=== PATIENT | male | born 1960 | race African-American/Black ===

== ENCOUNTER 2020-04-14 19:25 | Emergency (ER) | payer OTHER ==
[~2020-04-14] VITALS: Ht 167.6 cm; Wt 89.5 kg
[2020-04-14] MEDS ORDERED: FLUO-191 PO (19:40)
[2020-04-14] MEDS ORDERED: ARIP10TA8 PO (19:40)
[2020-04-14] MEDS ORDERED: TRAZ-257 PO (19:46)
[2020-04-14] MEDS ORDERED: PRAZ2 PO (19:46)
[2020-04-14 20:00] VITALS: BP 124/79
== END 2020-04-14 20:11 | disposition home or self-care (01) ==
LOC: EMS 19:25
DX: I83.892 Varicose veins of left lower extremity with other complications (principal); F41.9 Anxiety disorder, unspecified; F17.210 Nicotine dependence, cigarettes, uncomplicated; F14.90 Cocaine use, unspecified, uncomplicated; Z79.899 Other long term (current) drug therapy
CPT/HCPCS: Z7502